=== PATIENT | male | born 1975 | race Caucasian/White ===

== ENCOUNTER 2019-02-05 15:19 | Outpatient (CLI) | payer OTHER ==
--- NOTE | 2019-02-05 16:19 | MRI ---
LUMBAR SPINE MRI NONCONTRAST: 02/05/19 INDICATION: Lumbosacral radiculitis. No prior imaging comparison. FINDINGS: There is degenerative T1 hyperintense marrow signal alteration at the inferior L5 vertebra associated with a Schmorl's node. There is intrinsic T1 marrow signal also present involving the anteroinferior L4 vertebra. This may also relate to a similar process of degenerative marrow signal alteration, com patible with Modic type II degenerative signal change. Mild degenerative signal alteration and disc space narrowing at L4-5 and L5-S1 disc spaces is present. No compression fracture or subluxation. Con us medullaris is normal in morphology and terminates at the L2 level. There is mild bilateral degener ative facet hypertrophy throughout the lumbar spine. The imaged retroperitoneum reveals no acute abn ormality. No significant central canal or neural foraminal stenosis at L1-2, L2-3, or L3-4 levels. L4-5: There is a right paracentral disc protrusion with crowding of the traversing right L5 nerve heather t within the subarticular zone. No high grade foraminal stenosis. Mild central canal narrowing. L5-S1: Right asymmetric disc osteophyte complex and superimposed right subarticular/medial right fora ebonie zone disc protrusion impinging the traversing right S1 nerve root. Lateral to this, there is no significant right foraminal stenosis. The left neural foramen is mildly narrowed. IMPRESSION: 1. Disc degenerative disease at L4-5 and L5-S1 with impingement of the traversing right L5 and S 1 nerve roots as discussed above. Correlate for radiculopathic symptoms referable to these dermatomal distributions. 2. Schmorl's node of the inferior L5 end plate with associated degenerative marrow signal altera tion. POS: [facility]
== END 2019-02-05 15:20 | disposition home or self-care (01) ==
LOC: TBSIIMAG 15:19
PROVIDERS: ATTEND Family Medicine
DX: M51.17 Intervertebral disc disorders with radiculopathy, lumbosacral region (principal); M51.16 Intervertebral disc disorders with radiculopathy, lumbar region
CPT/HCPCS: 72148

== ENCOUNTER 2020-06-12 06:57 | Outpatient (CLI) | payer SELFPAY ==
[2020-06-12 18:01] LABS: SARS-CoV-2 MS2 Positive; SARS-CoV-2 N Gene Negative; SARS-CoV-2 S Gene Negative; SARS-CoV-2 by NAA Not Detected (NotDetected); SARS-CoV-2 orf1ab Negative
--- NOTE | 2020-06-12 23:13 | EKG ---
Test Reason : Blood Pressure : / mmHG Vent. Rate : 090 BPM Atrial Rate : 090 BPM P-R Int : 142 ms QRS Dur : 086 ms QT Int : 370 ms P-R-T Axes : 066 064 058 degrees QTc Int : 452 ms Normal sinus rhythm Normal ECG No previous ECGs available Confirmed by Sumi MEANS ([id number]) on 06/12/2020 11:13:22 PM Referred By: ELVIRA Confirmed By:Sumi MEANS
== END 2020-06-12 06:58 | disposition home or self-care (01) ==
LOC: LABBT 06:57
PROVIDERS: ATTEND Otolaryngology Plastic Surgery within the Head & Neck
DX: Z01.818 Encounter for other preprocedural examination (principal); Z01.812 Encounter for preprocedural laboratory examination; Z20.828 Contact with and (suspected) exposure to other viral communicable diseases; J34.2 Deviated nasal septum; J34.89 Other specified disorders of nose and nasal sinuses; R06.83 Snoring; R29.818 Other symptoms and signs involving the nervous system; Z87.81 Personal history of (healed) traumatic fracture; J34.3 Hypertrophy of nasal turbinates
CPT/HCPCS: 87635; 93005; 93010; U0003

== ENCOUNTER 2020-06-14 08:44 | Day surgery (SDC) | payer OTHER ==
[2020-06-12 13:15] VITALS: BMI 27.3
[2020-06-14] MEDS ORDERED: AFRIN NASAL MIST 15 ML BOT ONE (09:21)
[2020-06-14] MEDS ORDERED: Midazolam HCl 2 mg/2 ml Vial ONE (10:20)
[2020-06-14] MEDS ORDERED: Fentanyl 100 MCG/2 ML VIAL ONE ×2 (10:20→12:06)
[2020-06-14] MEDS ORDERED: Lidocaine 2% w/Epinephrine 1:200K 20 ML VIAL ONE (10:21)
[2020-06-14] MEDS ORDERED: Glycopyrrolate 0.2 MG/ML 5 ML SYRINGE ONE (11:41)
[2020-06-14] MEDS ORDERED: Ondansetron PF 4 MG/2 ML Vial ONE (11:41)
[2020-06-14] MEDS ORDERED: PROPOFOL 200 MG/20 ML VIAL ONE (11:41)
[2020-06-14] MEDS ORDERED: Dexamethasone 20 MG/5 ML VIAL ONE (11:41)
[2020-06-14] MEDS ORDERED: Lidocaine 1% PF 5 ML VIAL ONE (11:41)
[2020-06-14] MEDS ORDERED: Rocuronium Bromide 10 MG/ML (10ML VIAL) ONE (11:41)
--- NOTE | 2020-06-15 15:51 | OP ---
DATE OF PROCEDURE: 06/14/2020 PREOPERATIVE DIAGNOSES: 1. Nasal septal deviation. 2. Bilateral inferior turbinate hypertrophy. 3. Nasal obstruction. 4. Bilateral nasal wall collapse. POSTOPERATIVE DIAGNOSES: 1. Nasal septal deviation. 2. Bilateral inferior turbinate hypertrophy. 3. Nasal obstruction. 4. Bilateral nasal wall collapse. PROCEDURES: 1. Nasoseptoplasty. 2. Bilateral inferior turbinate submucosal resection. ANESTHESIA: GETA. ESTIMATED BLOOD LOSS: Less than 10 mL. COMPLICATIONS: None. PROCEDURE IN DETAIL: Patient was taken to the operating room and placed supine on the table. General endotracheal anesthesia was obtained by the anesthesia staff. Then 1% lidocaine with 1:100,000 epinephrine was injected into the nasal septum as well as the inferior turbinates. The patient was prepped and draped in standard surgical fashion. The Afrin pledgets were then removed. A Jasper incision was made on the left nasal septum. Submucoperichondrial dissection was performed bilaterally of the deviated portions of the septum, which included the maxillary crest and the crest deviation, as well as the mid portion of the septum. Cartilage and bony deviation was removed, leaving a generous caudal and dorsal strut. Any straight pieces of cartilage were then placed within the cartilage press, pressed, straightened, and then placed between the mucoperichondrial flaps, which were then closed using a 4-0 gut stitch. The inferior turbinates were then punctured with the submucosal Coblation machine, and 3 separate coblations were delivered to the anterior inferior portion of the inferior turbinates. Following this, the nasal cavity was irrigated. All debris was removed. An orogastric tube was placed. Gastric contents and Justin splints were then placed in the nasal cavity and sutured with a 3-0 silk stitch. Following this, a small endonasal incision was made and a subperiosteal pocket was elevated on the lateral aspect of the nasal bones bilaterally. The graft implant was positioned in the subperiosteal area and extended inferiorly below the lateral cartilages supporting the lateral cartilages bilaterally and correcting the wall collapse. The patient tolerated the procedure well. Nasal cavity was irrigated. Justin splints were placed and secured. Job ID: [id number]
== END 2020-06-14 13:10 | disposition home or self-care (01) ==
LOC: SDC 08:44
PROVIDERS: ATTEND Otolaryngology Plastic Surgery within the Head & Neck
PROC: 09BM8ZZ Excision of Nasal Septum, Via Natural or Artificial Opening Endoscopic (ICD-10-PCS; principal; 2020-06-14)
PROC: 09BL8ZZ Excision of Nasal Turbinate, Via Natural or Artificial Opening Endoscopic (ICD-10-PCS; principal; 2020-06-14)
DX: J34.2 Deviated nasal septum (principal); J34.3 Hypertrophy of nasal turbinates; J34.89 Other specified disorders of nose and nasal sinuses; F17.290 Nicotine dependence, other tobacco product, uncomplicated; Z79.899 Other long term (current) drug therapy
CPT/HCPCS: J1100; J2250; J2405; J2704; J3010